=== PATIENT | male | born 1945 | race Caucasian/White ===

== ENCOUNTER 2017-02-14 11:47 | Emergency (ER) | payer OTHER ==
[2017-02-14] MEDS ORDERED: 0.9 % SODIUM CHLORIDE 1,000 ML IV ONE (11:49)
[2017-02-14 12:05] LABS: EOSINOPHILS % 1.4 % (0.0-6.8); MEAN CORPUSCULAR HEMOGLOBIN 29.1 pg (28.0-34.0); MEAN CORPUSCULAR VOLUME 89.6 fl (80.0-100.0); MONOCYTES % 4.1 % (0.0-11.0); NEUTROPHILS # 5.2 # k/uL (1.4-7.7)
[2017-02-14 12:16] LABS: eGFR (African) > 60; eGFR (Non-African) > 60
[2017-02-14 12:19] VITALS: BP 142/78
--- NOTE | 2017-02-14 22:42 | ED Physician Documentation ---
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 [facility] in route to excelsior picker patient. In route, oxygen Sat down to 90% per EMS, patient brought into to ER for evaluation. RA Sat 90%, place on 5L NC.) - ROS CONST: no problems EYES/ENT: none MS/SKIN/LYMPH: back pain CVS/RESP: none GI/: denies: problems urinating, nausea, vomiting blood - PAST HX Past History: other (HTN, HLD, back surgery) Allergies/Adverse Reactions: Allergies Allergy/AdvReac Type Severity Reaction Status Date / Time No Allergy Information Allergy Unverified 02/14/17 12:19 Available Home Medications: Ambulatory Orders Medication Instructions Recorded Unobtainable [Unobtainable] 02/14/17 - SOCIAL HX Smoking History: cigarettes - FAMILY HX Family History: denies: none - VITAL SIGNS Vital Signs: Vital Signs Temp Pulse Resp BP Pulse Ox 62 16 142/78 98 02/14/17 12:22 02/14/17 12:22 02/14/17 12:22 02/14/17 12:22 - REVIEWED ASSESSMENTS Nursing Assessment Reviewed: Yes Vitals Reviewed: Yes Progress - Progress Progress: Labs obtained, bedside glucose 116 [facility] staff at bedside - report given Call to [facility] - spoke with Dr Chen, patient accepted for transfer. No scans done, deferred to trauma center. ED Results Lab/Radiology - Lab Results Lab Results: Lab Results 02/14/17 02/14/17 11:55 11:55 WBC 8.10 K/ul K/ul (4.00-12.00) RBC 5.07 M/ul M/ul (3.90-5.20) Hgb 14.8 g/dL g/dL (12.0-18.0) Hct 45.4 % % (37.0-53.0) MCV 89.6 fl fl (80.0-100.0) MCH 29.1 pg pg (28.0-34.0) MCHC 32.5 g/dL g/dL (30.0-36.0) RDW 13.5 % % (11.3-14.3) Plt Count 211 K/mm3 K/mm3 (130-400) Neut % (Auto) 63.8 % % (39.0-79.0) Lymph % (Auto) 28.4 % % (16.0-50.0) Gall[place] % (Auto) 4.1 % % (0.0-11.0) Eos % (Auto) 1.4 % % (0.0-6.8) Baso % (Auto) 1.0 (0.0-1.5) Neut # 5.2 # k/uL # k/uL (1.4-7.7) Lymph # 2.3 # k/uL # k/uL (0.6-4.0) Gallia # 0.3 # k/uL # k/uL (0.0-0.9) Eos # 0.1 # k/uL # k/uL (0.0-0.6) Baso # 0.1 # k/uL # k/uL (0.0-0.5) Reactive Lymphs % 1.3 % % (0.0-5.0) Reactive Lymphs # 0.1 # k/uL # k/uL (0.0-0.8) Sodium 141 mmol/L mmol/L (136-145) Potassium 3.9 mmol/L mmol/L (3.5-5.0) Chloride 111 mmol/L H mmol/L (98-110) Carbon Dioxide 32 mmol/L mmol/L (20-32) BUN 9 mg/dL L mg/dL (10-26) Creatinine 0.9 mg/dL mg/dL (0.4-1.5) Est GFR ( Amer) > 60 (60 - ) Est GFR (Non-Af Amer) > 60 (60 - ) Glucose 112 mg/dL H mg/dL (70-99) Calcium 8.9 mg/dL mg/dL (8.5-10.5) Total Bilirubin 0.5 mg/dL mg/dL (0.2-1.2) AST 27 U/L U/L (0-41) ALT 18 U/L U/L (0-45) Alkaline Phosphatase 85 U/L U/L (46-116) Total Protein 6.3 g/dL g/dL (6.0-8.5) Albumin 3.9 g/dL g/dL (3.0-5.5) - Orders Orders: ED Orders Category Date Time Status CBC/PLATELET/DIFF Stat Lab 02/14/17 11:55 Completed CMP Stat Lab 02/14/17 11:55 Completed 0.9 % Sodium Chloride [Normal Saline] 1,000 ml Med 02/14/17 11:49 Discontinued IV .STK-MED Multiple Trauma Physical Exam - Physical Exam 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 distress, heart sounds nml, decreased breath sounds (left slightly decreased). No: rhonchi Abdomen: soft, no organomegaly, normal bowel sounds, no abdominal bruit, no distension, tenderness (RUQ and RLQ) Neuro/Psych: oriented x3, manager net nml Skin: pallor, warm, other (left forearm) Back: other (on back board) - Ronan Coma Score Eyes Open: Spontaneous Speech: Oriented Motor: Obeys Commands Discharge Clincal Impression: Fall from roof Qualifiers: Encounter type: initial encounter Qualified Code(s): W13.2XXA - Fall from, out of or through roof, initial encounter Referrals: Primary Doctor,No [Primary Care Provider] - 2 Days Home Medications: Ambulatory Orders Unobtainable [Unobtainable] 02/14/17 Condition: Serious Disposition: 02 XFER SHT-TRM HOSP Decision to Admit: NO Decision Time: 12:20
== END 2017-02-14 12:04 | disposition short-term general hospital (02) ==
LOC: ED 11:47
DX: S09.90XA Unspecified injury of head, initial encounter (principal); W13.2XXA Fall from, out of or through roof, initial encounter; Y93.9 Activity, unspecified; Y99.9 Unspecified external cause status
CPT/HCPCS: 80053; 85025; J7030; 96360; 99284; S1016